=== PATIENT | male | born 1970 | race Caucasian/White ===

== ENCOUNTER → 2019-11-11 18:06 | Outpatient (CLI) | payer BC, SELFPAY ==
[2019-11-11 19:34] LABS: Basophils # 0.1 K/mm3 (0-0.2); Basophils % 0.6 % (0.1-2.0); Eosinophils # 0.1 K/mm3 (0.0-0.4); Eosinophils % 1.8 % (0.1-12.0); Hematocrit 42.1 % (42.0-52.0); Hemoglobin 14.8 g/dL (14.1-18.0); Lymphocytes # 2.5 K/mm3 (0.7-4.5); Lymphocytes % 31.5 % (10-50); Mean Corpuscular HGB Conc 35.1 g/dL (31.8-35.4); Mean Corpuscular Hemoglobin 33.2 pg (27.0-31.2); Mean Corpuscular Volume 94.7 fl (80-94); Mean Platelet Volume 8.3 fl (7.4-10.4); Monocytes # 0.5 K/mm3 (0.1-1.0); Monocytes % 6.7 % (1.7-9.3); Neutrophils # 4.7 K/mm3 (1.8-7.8); Neutrophils % 59.5 % (37.0-80.0); Platelet Count 254 K/mm3 (142-424); Red Blood Count 4.45 M/mm3 (4.60-6.20); Red Cell Distribution Width 13.7 % (11.5-17.5); White Blood Count 7.9 K/mm3 (4.8-10.8)
[2019-11-11 20:23] LABS: Alanine Aminotransferase 77 U/L (12-78); Albumin Level 4.3 g/dl (3.5-5.0); Albumin/Globulin Ratio 1.3 (1.1-1.8); Alkaline Phosphatase 74 U/L (38-126); Anion Gap 14.1 mEq/L (5-15); Aspartate Amino Transferase 95 U/L (17-59); Bilirubin,Total 0.7 mg/dl (0.2-1.3); Blood Urea Nitrogen 14 mg/dl (9-20); Calcium 10.5 mg/dl (8.4-10.2); Carbon Dioxide 26 mmol/L (22.0-30.0); Chloride 104 mmol/L (98-107); Cholesterol 244 mg/dl (140-200); Estimated Glomerular Filt Rate 119 ml/min (>60); GFR (African American) 144 ML/MIN (>60); Globulin 3.2 g/dL (1.3-3.2); Glucose 112 mg/dl (74-100); HDL Cholesterol 35 mg/dl (40-60); Potassium 4.1 mmoL/L (3.5-5.1); Sodium 140 mmol/L (136-145); Total Protein,Serum 7.5 g/dl (6.3-8.2)
[2019-11-11 20:26] LABS: Triglycerides 409 mg/dl (30-150)
[2019-11-11 20:34] LABS: Direct LDL Cholesterol 164.65 mg/dL (100-129)
== END ==
PROVIDERS: Visit Provider Family Medicine
DX: I10 Essential (primary) hypertension (principal)
CPT/HCPCS: 80053; 80061; 85025

== ENCOUNTER → 2020-11-02 18:20 | Outpatient (CLI) | payer BC, SELFPAY ==
[2020-11-02 18:56] LABS: Basophils # 0.1 K/mm3 (0-0.2); Eosinophils # 0.1 K/mm3 (0.0-0.4); Eosinophils % 1.7 % (0.1-12.0); Hemoglobin 15.1 g/dL (14.1-18.0); Lymphocytes # 2.4 K/mm3 (0.7-4.5); Lymphocytes % 27.9 % (10-50); Mean Corpuscular HGB Conc 33.6 g/dL (31.8-35.4); Mean Corpuscular Hemoglobin 32.1 pg (27.0-31.2); Mean Corpuscular Volume 95.5 fl (80-94); Mean Platelet Volume 8.8 fl (7.4-10.4); Monocytes # 0.6 K/mm3 (0.1-1.0); Monocytes % 7.3 % (1.7-9.3); Neutrophils # 5.4 K/mm3 (1.8-7.8); Neutrophils % 62.2 % (37.0-80.0); Platelet Count 282 K/mm3 (142-424); Red Blood Count 4.71 M/mm3 (4.60-6.20); Red Cell Distribution Width 13.6 % (11.5-17.5); White Blood Count 8.7 K/mm3 (4.8-10.8)
[2020-11-02 19:46] LABS: Chloride 105 mmol/L (98-107); Potassium 4.3 mmoL/L (3.5-5.1); Sodium 141 mmol/L (136-145)
[2020-11-02 19:49] LABS: Alanine Aminotransferase 72 U/L (12-78); Albumin Level 4.5 g/dl (3.5-5.0); Albumin/Globulin Ratio 1.5 (1.1-1.8); Alkaline Phosphatase 87 U/L (38-126); Anion Gap 13.3 mEq/L (5-15); Aspartate Amino Transferase 79 U/L (17-59); Bilirubin,Total 0.6 mg/dl (0.2-1.3); Blood Urea Nitrogen 10 mg/dl (9-20); Calcium 9.5 mg/dl (8.4-10.2); Carbon Dioxide 27 mmol/L (22.0-30.0); Estimated Glomerular Filt Rate 119 ml/min (>60); GFR (African American) 144 ML/MIN (>60); Glucose 105 mg/dl (74-100); Total Protein,Serum 7.5 g/dl (6.3-8.2)
[2020-11-02 20:19] LABS: Prostate Specific Ag Screen 0.2 ng/ml (0.0-4.0); Thyroid Stimulating Hormone 0.88 uIU/mL (0.465-4.68)
[2020-11-02 20:32] LABS: Hemoglobin A1C 6.7 % (4.0-6.0)
== END ==
PROVIDERS: Visit Provider Family Medicine
DX: E78.5 Hyperlipidemia, unspecified (principal); E66.9 Obesity, unspecified; Z12.5 Encounter for screening for malignant neoplasm of prostate
CPT/HCPCS: 80053; 83036; 84443; 85025; G0103

== ENCOUNTER → 2021-11-23 15:20 | Outpatient (CLI) | payer BC, SELFPAY ==
[2021-11-23 15:48] LABS: Basophils # 0.1 K/mm3 (0-0.2); Eosinophils # 0.1 K/mm3 (0.0-0.4); Eosinophils % 1.8 % (0.1-12.0); Hematocrit 43.9 % (42.0-52.0); Hemoglobin 14.4 g/dL (14.1-18.0); Lymphocytes % 29.9 % (10-50); Mean Corpuscular HGB Conc 32.7 g/dL (31.8-35.4); Mean Corpuscular Hemoglobin 33.3 pg (27.0-31.2); Mean Corpuscular Volume 101.8 fl (80-94); Mean Platelet Volume 9.2 fl (7.4-10.4); Monocytes # 0.5 K/mm3 (0.1-1.0); Monocytes % 7.7 % (1.7-9.3); Neutrophils # 3.9 K/mm3 (1.8-7.8); Neutrophils % 59.6 % (37.0-80.0); Platelet Count 293 K/mm3 (142-424); Red Blood Count 4.31 M/mm3 (4.60-6.20); Red Cell Distribution Width 13.8 % (11.5-17.5); White Blood Count 6.6 K/mm3 (4.8-10.8)
[2021-11-23 16:26] LABS: Albumin Level 4.1 g/dl (3.5-5.0); Albumin/Globulin Ratio 1.8 (1.1-1.8); Alkaline Phosphatase 96 U/L (38-126); Anion Gap 12.7 mEq/L (5-15); Aspartate Amino Transferase 59 U/L (17-59); Blood Urea Nitrogen 10 mg/dl (9-20); Calcium 9.5 mg/dl (8.4-10.2); Carbon Dioxide 26 mmol/L (22.0-30.0); Chloride 105 mmol/L (98-107); Chol/HDL Ratio 7.9 (1-3.5); Cholesterol 237 mg/dl (140-200); Estimated Glomerular Filt Rate 141 ml/min (>60); GFR (African American) 171 ML/MIN (>60); Globulin 2.3 g/dL (1.3-3.2); Glucose 111 mg/dl (74-100); HDL Cholesterol 30 mg/dl (40-60); Potassium 4.7 mmoL/L (3.5-5.1); Sodium 139 mmol/L (136-145); Total Protein,Serum 6.4 g/dl (6.3-8.2); Triglycerides 303 mg/dl (30-150); VLDL Cholesterol 61 mg/dL (0-40)
[2021-11-23 16:30] LABS: Bilirubin,Total < 0.1 mg/dl (0.2-1.3)
[2021-11-23 16:41] LABS: Alanine Aminotransferase 41 U/L (12-78)
[2021-11-23 17:23] LABS: Hemoglobin A1C 6.2 % (4.0-6.0)
[2021-11-25 15:34] LABS: Direct LDL Cholesterol 142 mg/dL (100-129)
== END ==
PROVIDERS: PCP Family Medicine; Visit Provider Family Medicine
DX: N20.0 Calculus of kidney (principal); E78.5 Hyperlipidemia, unspecified
CPT/HCPCS: 80053; 80061; 83036; 85025; 87086

== ENCOUNTER → 2022-08-12 13:27 | Outpatient (CLI) | payer BC, SELFPAY ==
[2022-08-12 14:40] LABS: Basophils # 0.1 K/mm3 (0-0.2); Basophils % 0.5 % (0.1-2.0); Eosinophils # 0.2 K/mm3 (0.0-0.4); Eosinophils % 1.7 % (0.1-12.0); Hematocrit 42.9 % (42.0-52.0); Hemoglobin 13.7 g/dL (14.1-18.0); Lymphocytes # 2.5 K/mm3 (0.7-4.5); Mean Corpuscular HGB Conc 32.1 g/dL (31.8-35.4); Mean Corpuscular Hemoglobin 31.5 pg (27.0-31.2); Mean Corpuscular Volume 98.3 fl (80-94); Mean Platelet Volume 8.4 fl (7.4-10.4); Monocytes # 0.7 K/mm3 (0.1-1.0); Monocytes % 6.8 % (1.7-9.3); Neutrophils # 6.6 K/mm3 (1.8-7.8); Platelet Count 307 K/mm3 (142-424); Red Blood Count 4.36 M/mm3 (4.60-6.20); Red Cell Distribution Width 13.4 % (11.5-17.5); White Blood Count 10.1 K/mm3 (4.8-10.8)
[2022-08-12 14:47] LABS: Alanine Aminotransferase 29 U/L (12-78); Albumin/Globulin Ratio 1.5 (1.1-1.8); Alkaline Phosphatase 66 U/L (38-126); Anion Gap 17.2 mEq/L (5-15); Aspartate Amino Transferase 50 U/L (17-59); Bilirubin,Total 0.6 mg/dl (0.2-1.3); Blood Urea Nitrogen 11 mg/dl (9-20); Calcium 9.5 mg/dl (8.4-10.2); Carbon Dioxide 30 mmol/L (22.0-30.0); Chloride 98 mmol/L (98-107); Chol/HDL Ratio 3.8 (1-3.5); Cholesterol 117 mg/dl (140-200); Estimated Glomerular Filt Rate 118 ml/min (>60); GFR (African American) 143 ML/MIN (>60); Globulin 2.7 g/dL (1.3-3.2); Glucose 115 mg/dl (74-100); HDL Cholesterol 31 mg/dl (40-60); Potassium 4.2 mmoL/L (3.5-5.1); Sodium 141 mmol/L (136-145); Total Protein,Serum 6.7 g/dl (6.3-8.2); Triglycerides 136 mg/dl (30-150); VLDL Cholesterol 27 mg/dL (0-40)
[2022-08-12 14:58] LABS: Direct LDL Cholesterol 79.15 mg/dL (100-129)
[2022-08-12 15:16] LABS: Hemoglobin A1C 6.2 % (4.0-6.0)
[2022-08-12 15:17] LABS: Prostate Specific Ag Screen 0.2 ng/ml (0.0-4.0)
== END ==
LOC: LAB.DROPOF 13:28
PROVIDERS: PCP Family Medicine; Visit Provider Family Medicine
DX: E78.5 Hyperlipidemia, unspecified (principal); E66.9 Obesity, unspecified; Z68.42 Body mass index [BMI] 45.0-49.9, adult; Z79.899 Other long term (current) drug therapy; Z12.5 Encounter for screening for malignant neoplasm of prostate
CPT/HCPCS: 80053; 80061; 83036; 84443; 85025; G0103

== ENCOUNTER → 2023-03-17 13:10 | Outpatient (CLI) | payer BC, OTHER, SELFPAY ==
--- NOTE | 2023-03-17 13:10 | MR_ITS ---
FINAL REPORT CLINICAL HISTORY: Bilateral radicular pain, BLATERAL LOWER EXTREMITY NUMBNESS AND PAIN COMPARISON: None FINDINGS: Multiplanar MR imaging of the lumbar spine was performed without and with contrast. On the sagittal T2-weighted images, abnormal decreased signal is seen throughout. There is abnormal loss of height disc spaces most evident at L1-2 and L2-3. There is no malalignment. L1-2: Mild disc bulge. Mild bilateral neural foraminal narrowing. L2-3: Moderate diffuse disc bulge. Flattening of the anterior aspect of the thecal sac. High-grade right and moderate left neural foraminal narrowing L3-4: [id number] diffuse disc bulge. Moderate to high-grade right and mild left neural foraminal narrowing. L4-5: Mild disc bulge. No significant central canal stenosis or neuroforaminal narrowing. L5-S1: Mild disc bulge. No significant canal stenosis or neuroforaminal narrowing is seen. There is enhancement of the posterior annulus at L2-3 IMPRESSION: Moderate disc bulge at L2-3 with neural foraminal compromise particularly evident on the right at L2-3 with some enhancing annulus: All consistent with degenerative disc disease. Significant neural foraminal narrowing on the right at L3-4. Reviewed, Interpreted and Dictated by Kadeem Hogue MD Transcribed by Loren Garcia Authenticated and . [facility]
== END ==
PROVIDERS: PCP Family Medicine; Visit Provider Family Medicine
DX: M54.50 Low back pain, unspecified (principal)
CPT/HCPCS: 72158; 76376; A9576

== ENCOUNTER 2023-07-31 18:00 | Outpatient (CLI) | payer BC, OTHER, SELFPAY ==
[2023-07-31 18:26] LABS: Basophils # 0.1 K/mm3 (0-0.2); Basophils % 0.6 % (0.1-2.0); Eosinophils # 0.1 K/mm3 (0.0-0.4); Eosinophils % 1.5 % (0.1-12.0); Hematocrit 43.5 % (42.0-52.0); Lymphocytes # 2.7 K/mm3 (0.7-4.5); Lymphocytes % 27.9 % (10-50); Mean Corpuscular HGB Conc 32.3 g/dL (31.8-35.4); Mean Corpuscular Hemoglobin 31.8 pg (27.0-31.2); Mean Corpuscular Volume 98.4 fl (80-94); Mean Platelet Volume 9.3 fl (7.4-10.4); Monocytes # 0.9 K/mm3 (0.1-1.0); Neutrophils # 5.8 K/mm3 (1.8-7.8); Platelet Count 443 K/mm3 (142-424); Red Blood Count 4.42 M/mm3 (4.60-6.20); Red Cell Distribution Width 13.8 % (11.5-17.5); White Blood Count 9.5 K/mm3 (4.8-10.8)
[2023-07-31 18:53] LABS: Alanine Aminotransferase 39 U/L (12-78); Albumin Level 3.9 g/dl (3.5-5.0); Albumin/Globulin Ratio 1.6 (1.1-1.8); Alkaline Phosphatase 66 U/L (38-126); Anion Gap 9.1 mEq/L (5-15); Aspartate Amino Transferase 50 U/L (17-59); Bilirubin,Total 0.5 mg/dl (0.2-1.3); Blood Urea Nitrogen 12 mg/dl (9-20); Carbon Dioxide 29 mmol/L (22.0-30.0); Chloride 107 mmol/L (98-107); Chol/HDL Ratio 4.1 (1-3.5); Cholesterol 140 mg/dl (140-200); Estimated Glomerular Filt Rate 118 ml/min (>60); GFR (African American) 142 ML/MIN (>60); Globulin 2.4 g/dL (1.3-3.2); Glucose 110 mg/dl (74-100); HDL Cholesterol 34 mg/dl (40-60); Potassium 4.1 mmoL/L (3.5-5.1); Sodium 141 mmol/L (136-145); Total Protein,Serum 6.3 g/dl (6.3-8.2); Triglycerides 202 mg/dl (30-150); VLDL Cholesterol 40 mg/dL (0-40)
[2023-07-31 19:04] LABS: Direct LDL Cholesterol 85.93 mg/dL (100-129)
[2023-07-31 19:29] LABS: Hemoglobin A1C 7.1 % (4.0-6.0)
== END 2023-07-31 23:59 | disposition home or self-care (01) ==
LOC: LAB.DROPOF 08-01 07:58
PROVIDERS: PCP Family Medicine; Visit Provider Family Medicine
DX: R73.03 Prediabetes (principal); E78.5 Hyperlipidemia, unspecified; I10 Essential (primary) hypertension; Z72.0 Tobacco use; E66.01 Morbid (severe) obesity due to excess calories; Z68.42 Body mass index [BMI] 45.0-49.9, adult
CPT/HCPCS: 80053; 80061; 83036; 85025

== ENCOUNTER 2024-09-30 10:32 | Outpatient (CLI) | payer BC, OTHER, SELFPAY ==
[2024-09-30 19:02] LABS: Basophils # 0.1 K/mm3 (0-0.2); Basophils % 0.6 % (0.1-2.0); Eosinophils # 0.2 Kmm3 (0.0-0.4); Eosinophils % 1.9 % (0.1-12.0); Hematocrit 44.5 % (42.0-52.0); Hemoglobin 14.7 g/dL (14.1-18.0); Immature Granulocytes # 0.07 10^3uL; Immature Granulocytes % 0.9 %; Lymphocytes % 25.2 % (10-50); Mean Corpuscular Hemoglobin 31.8 pg (27.0-31.2); Mean Corpuscular Volume 96.3 fl (80-94); Mean Platelet Volume 10.6 fl (7.4-10.4); Monocytes # 0.9 K/mm3 (0.1-1.0); Monocytes % 11.3 % (1.7-9.3); Neutrophils # 4.8 K/mm3 (1.8-7.8); Neutrophils % 60.1 % (37.0-80.0); Nucleated Red Blood Cells # 0 10^3/uL; Nucleated Red Blood Cells % 0 %; Platelet Count 302 K/mm3 (142-424); Red Blood Count 4.62 M/mm3 (4.60-6.20); Red Cell Distribution Width 13.3 % (11.5-17.5); Red Cell Distribution Width-SD 47.8 fL
[2024-09-30 19:58] LABS: Alanine Aminotransferase 43 U/L (12-78); Albumin Level 4.3 g/dl (3.5-5.0); Albumin/Globulin Ratio 1.4 (1.1-1.8); Alkaline Phosphatase 76 U/L (38-126); Anion Gap 13.5 mEq/L (5-15); Aspartate Amino Transferase 55 U/L (17-59); Bilirubin,Total 0.9 mg/dl (0.2-1.3); Blood Urea Nitrogen 16 mg/dl (9-20); Calcium 10.2 mg/dl (8.4-10.2); Carbon Dioxide 28 mmol/L (22.0-30.0); Chloride 99 mmol/L (98-107); Chol/HDL Ratio 7.9 (1-3.5); Cholesterol 252 mg/dl (140-200); Estimated Glomerular Filt Rate 117 ml/min (>60); GFR (African American) 142 ML/MIN (>60); Glucose 123 mg/dl (74-100); HDL Cholesterol 32 mg/dl (40-60); Potassium 4.5 mmoL/L (3.5-5.1); Sodium 136 mmol/L (136-145); Total Protein,Serum 7.3 g/dl (6.3-8.2); Triglycerides 362 mg/dl (30-150); VLDL Cholesterol 72 mg/dL (0-40)
[2024-09-30 20:09] LABS: Direct LDL Cholesterol 154.37 mg/dL (100-129)
[2024-09-30 20:29] LABS: Prostate Specific Ag Screen 0.2 ng/ml (0.0-4.0)
[2024-09-30 20:34] LABS: HIV Combo NEGATIVE (Negative)
[2024-09-30 20:48] LABS: Hepatitis C Ab Qual. W/ RFX NEGATIVE (Negative)
[2024-10-02 03:38] LABS: Testosterone,Total 573 ng/dL (264-916)
[2024-10-02 05:09] LABS: Hepatitis B Surface Antigen Negative (Negative)
--- OUTSIDE RECORDS SUMMARY | 2024-10-02 10:38 | XMS_ITS | Encounter Summary ---
Author Organization [place] [address] Care Team Providers Care Vending Mechanic Name Role Phone Jonnathan Fernandes MD Primary Care Provider [phone] Encounter Details Date Type Department Care Team (Late st Contact Info) Description 01/17/2022 Lab Requisition [facility] [place] [id number] Essential (primary) hypertension; Calculus of ureter Social History Tobacco Use Types Packs/Day Years Used Date Smoking Tobacco: Every Day Cigarettes Smokeless Tobacco: Never Alcohol Use Standard Drinks/Week Comments Yes 0 (1 standard drink = 0.6 oz pur e alcohol) ocasionally Sex and Gender Information Value Date Recorded Sex Assigned at Not on file Legal Sex Male 9:06 PM EDT Gender Identity Not on file Sexual Orientation Not on file documented as of this encounter Plan of Treatment Not on file documented as of this encounter Procedures Procedure Name Priority Date/Time Associated Diagnosis Comments CALCULI (STONE) ANALYSIS - REF LAB Routine 01/17/2022 12:00 PM EDT Essential (primary) hypertension Calculus of ureter documented in this encounter Results * CALCULI (STONE) ANALYSIS - REF LAB (01/17/2022 12:00 PM EDT) Calculi Comp See Note 01/20/2022 9:21 PM EDT [facility] Comment: Calculi composed primarily of calcium carbonate (calcite). INTERPRETIVE INFORMATION: Calculi (Stone) analysis Calculi are the products of physiological processes that yield crystalline compounds in a matrix of biological compounds and blood. Matrix components are not reported. The clinically significant crystalline components identified in calculi specimens are reported. Gross description may not be consistent with composition determined by FTIR analysis. Performed By: [facility] [address] [place] [address] Turning Machine Operator: Barrie Nieto MD, PhD Calculi Mass 12 mg 01/20/2022 9:21 PM EDT [facility] Calculi Desc See Note 01/20/2022 9:21 PM EDT [facility] Comment: Specimen consists of one zhong calculus. The total weight is 12 mg. Calculus URINE SPECIMEN COLLECTION / Unknown 01/17/2022 12:00 PM EDT 01/17/2022 8:19 PM EDT us Jeremiah Alanis MD MICROBIOLOGY - GENERAL OR DERABLES Final Result [facility] [address] [place] [address] documented in this encounter Visit Diagnoses Diagnosis Essential (primary) hypertension Unspecified essential hypertension Calculus of ureter documented in this encounter Care Teams Vending Mechanic Relationship Specialty Start Date End Date Jonnathan Fernandes MD PCP - General Family Medicine 03/01/11 documented as of this encounter
--- OUTSIDE RECORDS SUMMARY | 2024-10-02 10:38 | XMS_ITS | Clinical Summary ---
Author Organization [facility] Address [address] [place] [address] Care Team Providers Care Jet Ski Mechanic Name Role Phone Jonnathan Fernandes MD Primary Care Provider [phone] Allergies No known active allergies Medications lisinopril-hydro chlorothiazide (PRINZIDE;ZESTOR ETIC) 20-12.5 MG per tablet Take 1 tablet by mouth daily. Active diclofenac (VOLTAREN) 75 MG EC tablet Take 75 mg by mouth 2 times daily. Active simvastatin (ZOCOR) 20 MG tablet Take 20 mg by mouth nightly. Active cetirizine (ZYRTEC) 10 MG tablet Take 10 mg by mouth daily as needed. Active Active Problems No known active problems Social History Tobacco Use Types Packs/Day Years Used Date Smoking Tobacco: Every Day Cigarettes 1 16 Smokeless Tobacco: Never Alcohol Use Standard Drinks/Week Comments Yes 4 (1 standard drink = 0.6 oz pur e alcohol) Sex and Gender Information Value Date Recorded Sex Assigned at Not on file Legal Sex Male 8:51 PM EST Gender Identity Not on file Sexual Orientation Not on file Last Filed Vital Signs Vital Sign Reading Time Taken Comments Blood Pressure 135/95 03/24/2011 1:37 PM EST Pulse 84 03/24/2011 1:37 PM EST Temperature 35.9 C (96.6 F) 03/24/2011 1:37 PM EST Respiratory Rate 18 03/24/2011 1:37 PM EST Oxygen Saturation 97% 03/24/2011 1:37 PM EST Inhaled Oxygen Concentration - - Weight 122.9 kg (271 lb) 03/24/2011 8:58 AM EST Height 171.5 cm (5' 7.5 ) 03/24/2011 8:58 AM EST Body Mass Index 41.82 03/24/2011 8:58 AM EST Plan of Treatment Not on file Advance Directives Documents on File Type Date Recorded Patient Plastic Cutter Expl anation ACP-Advance Directive 10/17/2012 3:33 AM * Full Code (Latest Code Status on File) Date Activated Date Inactivated Comments 03/24/2011 12:43 PM 03/25/2011 2:16 AM Care Teams Jet Ski Mechanic Relationship Specialty Start Date End Date Jonnathan Fernandes MD [address] [place] [address] PCP - General 03/17/11
--- OUTSIDE RECORDS SUMMARY | 2024-10-02 10:38 | XMS_ITS | Clinical Summary ---
Author Organization [facility] Address [address] [place] [address] Phone Care Team Providers Care Line Supply Name Role Phone Jonnathan Fernandes MD Primary Care Provider [phone] Allergies Active Allergy Reactions Criticality Noted Date Comments Gemfibrozil Nausea And Vomiting Low 11/16/2021 Medications lisinopril (PRINIVIL;ZESTR IL) 10 mg Oral Tablet Take by mouth daily. Active pantoprazole (PROTONIX) 40 mg Oral Tablet, Delayed Release (E.C.) Take 40 mg by mouth daily. Active gemfibrozil (LOPID) 600 mg Oral Tablet Take 600 mg by mouth 2 times daily (before meals). Active amLODIPine-tiffanie zepril (LOTREL) 10-40 mg Oral Capsule Take 1 Capsule by mouth daily. 2 Active LIPITOR 20 mg Oral Tablet 4 Active TRICOR 145 mg Oral Tablet 4 Active [id number]-as b-C (PLENVU) 140-9-5.2 gram Oral Powder in Packet, SequentialIndic ations:Personal history of colonic polyps Take 3 Packets by mouth Preprocedure for up to 1 dose. 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 01/20/2014 Surgical History Surgery Date Site/Laterality Comments FOOT SURGERY Bilateral KNEE ARTHROSCOPY Bilateral Medical History Medical History Date Comments Kidney stones Hypertension Skinner's esophagus History of colonic polyps GERD (gastroesophageal reflux disease) Social History Tobacco Use Types Packs/Day Years Used Date Smoking Tobacco: Every Day Cigarettes Smokeless Tobacco: Never Tobacco Cessation:Ready to Q uit: Not Asked; Counseling Given: Not Answered Alcohol Use Standard Drinks/Week Comments Yes 0 (1 standard drink = 0.6 oz pur e alcohol) ocasionally Sex and Gender Information Value Date Recorded Sex Assigned at Not on file Legal Sex Male 9:06 PM EDT Gender Identity Not on file Sexual Orientation Not on file Obstetrics History Last Filed Vital Signs Vital Sign Reading Time Taken Comments Blood Pressure 130/81 10/17/2023 11:27 AM EDT Pulse 86 10/17/2023 11:27 AM EDT Temperature 36.2 C (97.2 F) 10/17/2023 9:23 AM EDT Respiratory Rate 16 10/17/2023 11:2 7 AM EDT Oxygen Saturation 92% 10/17/2023 11: 27 AM EDT Inhaled Oxygen Concentration - - Weight 136.9 kg (301 lb 12.8 oz) 10/17/2023 9:23 AM EDT Height 170.2 cm (5' 7 ) 10/17/2023 9:23 AM EDT Body Mass Index 47.27 10/17/2023 9:23 AM EDT Plan of Treatment Health Maintenance Due Date Last Done Comments Annual Wellness Exam 1972 DTaP/TDaP/Td (1 - Tdap) 1988 Hepatitis B Vaccine (1 of 3 - 19+ 3-dose series) 1988 Pneumococcal Vaccine 50+ (1 of 2 - PCV) 1988 Cologuard 2014 FIT 2014 Sigmoidoscopy 2014 Virtual Colonography 2014 Zoster (1 of 2) 2019 COVID-19 Vaccine (1 - 2023-2 5 season) 2023 Influenza Vaccine (#1) 2024 Colon Cancer Screening 10/15/2028 Colonoscopy 10/15/2028 10/17/2023, 02/28/2017 Meningococcal B Vaccine Aged Out No l onger eligible based on patient's age to complete this topic Procedures Procedure Name Priority Date/Time Associated Diagnosis Comments COLONOSCOPY Routine 10/17/2023 11:09 AM EDT Personal history of colonic polyps from Last 3 Months or Most Recently Relevant to Health Maintenance Results * COLONOSCOPY (10/17/2023 11:09 AM EDT) Anatomical Region Laterality Modality Endoscopy Narrative 10/17/2023 11:17 AM EDT Table formatting from the original result was not included. Findings Few scattered diverticula of moderate severity in the mid descending colon and mid sigmoid colon; no bleeding was identified Two internal medium, protruding (grade 2) hemorrhoids; no bleeding was identified The cecum, ascending colon, transverse colon, descending colon, sigmoid colon and rectum appeared normal. Recommendation Repeat colonoscopy in 5 years, due: 10/15/2028 Recommend a high fiber diet. Follow up with pathology results. If no results in 4 weeks, please call the office at [phone]. Office follow up as needed Pre-Procedure Diagnosis / Indication Personal history of colonic polyps Post-Procedure Diagnosis Personal history of colonic polyps Staff Staff Role No Staff Documented Medications See Anesthesia Record. Preprocedure A history and physical has been performed, and patient medication allergies have been reviewed. The patient's tolerance of previous anesthesia has been reviewed. The risks and benefits of the procedure and the sedation options and risks were discussed with the patient. All questions were answered and informed consent obtained. ASA 3 - Patient with severe systemic disease Details of the Procedure The patient underwent monitored anesthesia care, which was administered by an anesthesia professional. The patient's blood pressure, heart rate, level of consciousness, oxygen, respirations, ECG and ETCO2 were monitored throughout the procedure. A digital rectal exam was performed. The scope was introduced through the anus and advanced to the cecum. Retroflexion was performed in the rectum. Bowel prep was adequate. The patient experienced no blood loss. The procedure was not difficult. The patient tolerated the procedure well. There were no apparent adverse events. Patient provided education and educated on specific discharge instructions. Patient educated on medications given during the procedure and new medications for discharge. Patient verbalizes understanding of discharge education. Patient stable and awaiting transport for discharge. Events Procedure Events Event Event Time ENDO SCOPE IN TIME 10/17/2023 10:49 AM ENDO SCOPE OUT TIME 10/17/2023 10:53 AM ENDO SCOPE IN TIME 10/17/2023 10:58 AM ENDO CECUM REACHED 10/17/2023 11:02 AM ENDO SCOPE WITHDRAW BEGIN 10/17/2023 11:02 AM ENDO SCOPE OUT TIME 10/17/2023 11:09 AM Specimens ID Type Source Tests Collected by Time 1 : r/o h pylori Tissue Gastric [facility] PATHOLOGY ORDER David Stein MD 10/17/2023 1055 2 : r/o barretts Tissue Gastroesophageal Junction [facility] PATHOLOGY ORDER David Stein MD 10/17/2023 1055 [facility] ENDOSCOPY PROCEDURE ORDERA BLES Final Result from Last 3 Months or Most Recently Relevant to Health Maintenance Insurance ASHA PPO ANTHBRAD PPO ANTH PPO Care Teams Line Supply Relationship Specialty Start Date End Date Jonnathan Fernandes MD PCP - General Family Medicine 03/01/11
== END 2024-09-30 23:59 | disposition home or self-care (01) ==
LOC: LAB.DROPOF 10-02 10:32
PROVIDERS: PCP Family Medicine; Visit Provider Family Medicine
DX: Z12.5 Encounter for screening for malignant neoplasm of prostate (principal); Z11.59 Encounter for screening for other viral diseases; E78.5 Hyperlipidemia, unspecified; R73.03 Prediabetes; I10 Essential (primary) hypertension
CPT/HCPCS: 80053; 80061; 83036; 84403; 85025; 86803; 87340; 87389; G0103

== ENCOUNTER 2025-01-31 09:41 | Outpatient (CLI) | payer BC, OTHER, SELFPAY ==
[2025-01-31 14:40] LABS: Hematocrit 42.1 % (42.0-52.0); Hemoglobin 13.9 g/dL (14.1-18.0); Immature Granulocytes % 0.4 %; Mean Corpuscular HGB Conc 33.0 g/dL (31.8-35.4); Mean Corpuscular Hemoglobin 31.4 pg (27.0-31.2); Mean Corpuscular Volume 95.0 fl (80-94); Nucleated Red Blood Cells % 0 %; Platelet Count 302 K/mm3 (142-424); Red Blood Count 4.43 M/mm3 (4.60-6.20); Red Cell Distribution Width-SD 47.6 fL; White Blood Count 9.7 K/mm3 (4.8-10.8)
[2025-01-31 15:53] LABS: Albumin Level 4.7 g/dl (3.5-5.0); Chloride 104 mmol/L (98-107)
[2025-01-31 15:54] LABS: Potassium 4.0 mmoL/L (3.5-5.1); Sodium 135 mmol/L (136-145)
[2025-01-31 15:56] LABS: Alanine Aminotransferase 24 U/L (12-78); Alkaline Phosphatase 68 U/L (38-126); Anion Gap 8.0 mEq/L (5-15); Aspartate Amino Transferase 35 U/L (17-59); Bilirubin,Total 0.3 mg/dl (0.2-1.3); Carbon Dioxide 27 mmol/L (22.0-30.0)
[2025-01-31 15:57] LABS: Albumin/Globulin Ratio 2.2 (1.1-1.8); Calcium 9.4 mg/dl (8.4-10.2); Cholesterol 113 mg/dl (140-200); Globulin 2.1 g/dL (1.3-3.2); Glucose 104 mg/dl (74-100); HDL Cholesterol 33 mg/dl (40-60); Total Protein,Serum 6.8 g/dl (6.3-8.2); Triglycerides 119 mg/dl (30-150)
[2025-01-31 16:17] LABS: Blood Urea Nitrogen 15 mg/dl (9-20); Creatinine,Serum 0.80 mg/dl (0.66-1.25); Estimated Glomerular Filt Rate 100 ml/min (>60); GFR (African American) 121 ML/MIN (>60)
--- OUTSIDE RECORDS SUMMARY | 2025-02-03 09:44 | XMS_ITS | Encounter Summary ---
Author Organization [place] [address] Care Team Providers Care Seal Delivery Vehicle Officer Name Role Phone Jonnathan Fernandes MD Primary Care Provider [phone] Encounter Details Date Type Department Care Team (Late st Contact Info) Description 01/17/2022 Lab Requisition [facility] [place] [id number] Essential (primary) hypertension; Calculus of ureter Social [...] Comp See Note 01/20/2022 9:21 PM EDT [facility] Comment: Calculi composed primarily of calcium carbonate (calcite). INTERPRETIVE INFORMATION: Calculi (Stone) analysis Calculi are the products of physiological processes that yield crystalline compounds in a matrix of biological compounds and blood. Matrix components are not reported. The clinically significant crystalline components identified in calculi specimens are reported. Gross description may not be consistent with composition determined by FTIR analysis. Performed By: [facility] [address] [place] [address] Gospel Worker: Barrie Nieto MD, PhD Calculi Mass 12 mg 01/20/2022 9:21 PM EDT [facility] Calculi Desc See Note 01/20/2022 9:21 PM EDT [facility] Comment: Specimen consists of one zhong calculus. The total weight is 12 mg. Calculus URINE SPECIMEN COLLECTION / Unknown 01/17/2022 12:00 PM EDT 01/17/2022 8:19 PM EDT us Jeremiah Alanis MD MICROBIOLOGY - GENERAL OR DERABLES Final Result [facility] [address] [place] [address] documented in this encounter Visit Diagnoses Diagnosis Essential (primary) hypertension Unspecified essential hypertension Calculus of ureter documented in this encounter Care Teams Seal Delivery Vehicle Officer Relationship Specialty Start Date End Date Jonnathan Fernandes MD PCP - General Family Medicine 03/01/11 documented as of this encounter
--- OUTSIDE RECORDS SUMMARY | 2025-02-03 09:44 | XMS_ITS | Clinical Summary ---
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
--- OUTSIDE RECORDS SUMMARY | 2025-02-03 09:44 | XMS_ITS | Clinical Summary ---
Author Organization [facility] Address [address] [place] [address] Phone Care Team Providers Care Wine Specialist Name Role Phone Jonnathan Fernandes MD Primary Care Provider [phone] Allergies Active Allergy Reactions Criticality Noted Date [...] TRICOR 145 mg Oral Tablet 4 Active [id number] b-C (PLENVU) 140-9-5.2 gram Oral Powder in [...] Zoster (1 of 2) 2019 COVID-19 Vaccine (2024-2 6 season) 2024 Influenza Vaccine (#1) 2024 Colon Cancer Screening [...] 4 weeks, please call the office at [phone]. Office follow up as needed Pre-Procedure Diagnosis [...] PATHOLOGY ORDER David Stein MD 10/17/2023 1055 [facility] DIELECTRIC MACHINE OPERATOR ENDOSCOPY PROCEDURE ORDERA BLES Final Result from Last 3 Months or Most Recently Relevant to Health Maintenance Insurance ASHA PPO ASHA PPO ANTH PPO Care Teams Wine Specialist Relationship Specialty Start Date End Date Jonnathan Fernandes MD PCP - General Family Medicine 03/01/11
--- OUTSIDE RECORDS SUMMARY | 2025-02-03 09:45 | XMS_ITS | Data Portability ---
Author Organization Formerly [facility] Address [address] [place] [address] Care Team Providers Care Purchase Request Editor Name Role Phone DAWOOD GARCIA Referring Provider Assessment Encounter Date Assessment Date Assessment LastModified by Organization Details LastModified Time 04/10/2023 04/10/2023 BRIEF PAIN HISTORY: 52-year-old male new patient referral for chronic low back and bilateral radicular pain down to the knees. He reports pains around 2022 over 8 months ago without cause. Has been slowly progressive to the point it which has been affecting his ability to perform ADLs. He has tried conservative measures including nhdj-sze-uvaiobr medications without relief. No help from care management specialist. Due to ongoing issues with pain he was sent for MRI and referred on to our office. He is not interested in any controlled medications. Looking for other treatment options. SX: Reports pain across low back with some referred into the hips and anterior thighs down to the knees. States the pain is a constant aching, throbbing, sharp aggravated with activity including standing, walking, lifting, carrying, bending, squatting, pushing, pulling. Reports occasional cramps into his thighs as well. Denies any bowel or bladder incontinence. Reports weakness numbness and tingling in the legs along this area as well. PERTINENT IMAGING: Lumbar MRI with and without contrast March 2023: L1-2: Mild disc bulge. L2-3: Moderate diffuse disc bulge. Flattening of the anterior aspect of the thecal sac. High-grade right and moderate left neuroforaminal narrowing. Enhancement of the posterior annulus related to possible annular tear. L3-4: Mild to moderate diffuse disc bulge. Moderate high-grade right and left neuroforaminal narrowing. L4-5: Mild disc bulge. L5-S1: Mild disc bulge. OTHER TREATMENTS: Conservative: No help from 6 weeks physical therapy. No help from care management specialist. 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 He has not responded to conservative therapy. MRI supports radicular symptoms along bilateral L2 and L3 dermatomes. He is not interested in controlled medications. We discussed injection therapy and he is agreeable move forward. History and exam are consistent with low back and leg pain from lumbar radiculitis, supported by imaging. Symptoms have not responded to >3 months conservative therapy including but not limited to physical therapy, NSAID medications. Symptoms are affecting ability to perform ADLs. I am going to schedule for a LESI L2-3 interlaminar PLAN: 1. Order placed for intralaminar LESI L2-3 Discussed new orders/changes with patient. Patient expressed agreement and full understanding of above plan. All questions answered in full. Follow-up 30 days Much of this encounter is an electronic building services technician/tra nslation of spoken language to printed text. The electronic translation of spoken language may permit erroneous or at times nonsensical words of phrases to be inadvertently transcribed; Although I have reviewed the note for such errors, some may still exist. [email or web address] Not available 04/10/2023 09:14:38 Plan of Treatment Reminders Order Date Submit Date Provider Last Modified By Organization Details Last Modified Time Details Appointments None recorded. Lab None recorded. Referral None recorded. Procedures epidural steroid injection, lumbar interlamina r (PROC) - L2/L3 2023 024 [email or web address] Not available 08:43:21 Surgeries None recorded. Imaging None recorded. Medication Orders None recorded. Patient TargetsNo targets recorded. Patient Instructions Encounter Date Encounter Id Patient Instructions Last Modified By Organization Details Last Modified Time 04/10/2023 [id number] advance directives: care instructions [email or web address] Not available 04/10/2023 09:14:49 depression and chronic disease: care instructions Not available 04/10/2023 09:14:49 safe use of opioid pain medicine: care instructions [email or web address] Not available 04/10/2023 09:14:49 Reason for Referral None Reported. Results Created Date Observation Date Name Description Value Unit Range Abnormal Flag Note LastModifiedBy Organization Detail LastModifiedTime 05/08/19 24 epidu ral stero id injec tion, lumba r inter shashi ar (PROC ) No observ ation record ed. [email or web address] Not Available 05/08 11:04:25 Result Notes None recorded. Problems Name Problem SNOMED Code Status Onset Date Resolution Date Notes Provider Name and Address Organization Details Recorded Time Degeneratio n of lumbar interverteb ral disc 27958340 Active 2023 Lana Tino [facility] 4 09:09:00 Lumbar radiculitis 3528954535380 9104 Active 2023 Lana Tino [facility] 4 09:09:09 Lumbar radiculopat hy 584968685 Active 2023 Lana Jiménez [facility] 4 09:09:24 Problem Notes None recorded. Procedures Surgical History Date Name Laterality Status Provider Name and Address Organization Details Recorded Time 04/25/19 24 Lumbar ELIZABETH: Interlaminar completed Navi Concepcion MD [address] [place] [address], [phone] [facility] 04/25/2023 15:07:53 procedure on foot completed Lanayomaira Jiménez [facility] 04/10/2023 08:55:22 Knee arthroscopy/surg [place] completed Lana Tino [facility] 04/10/2023 08:55:48 Imaging Results None recorded. Procedure Notes None recorded. Medical Equipment None Reported. Allergies No known drug allergies Medications Name Sig Start Date Stop Date Status Note LastModified by Organization Details LastModified Time atorvastatin 20 mg tablet TAKE 1 TABLET ORALLY ONCE DAILY active Not Available Not Available No t Available hydrocodone 5 mg-acetamino phen 325 mg tablet TAKE 1 TABLET BY MOUTH TWICE A DAY NEEDED FOR PAIN 04/10 completed Not Available Not Available Not Available pantoprazole 40 mg tablet,delay ed release TAKE 1 TABLET BY MOUTH TWICE A DAY active Not Available Not Available No t Available dexamethason e 4 mg tablet TAKE 1 TABLET BY MOUTH TWICE A DAY active Not Available Not Available No t Available amlodipine 10 mg-benazepri l 40 mg capsule TAKE 1 CAPSULE BY MOUTH EVERY DAY active Not Available Not Available No t Available fenofibrate nanocrystall ized 145 mg tablet TAKE 1 TABLET BY MOUTH EVERY DAY active Not Available Not Available No t Available Vitals Date Recorded Body height Body mass index (BMI) Body weight Pain severity - 0-10 verbal numeric rating [Score] - Reported Heart rate Oxygen saturation Oxygen saturation in Arterial blood by Pulse oximetry Systolic And Diastolic Provider Name and Address Organization Details Last Updated DateTime 4 170.18 cm 47 kg/m2 970765. 71 g 3 74 /min 99 % 99 % 127/76 mm[Hg] Lana Jiménez [facility] 4 08:52:52 Social History Question Answer Notes LastModified by Organizat ion Details LastModified Time Tobacco Smoking Status Current Every Day Smoker Lana Jiménez [facility] 04/10/2023 08:54:47 Do You Have An Advance Directive? Yes Information not available 04/10/2023 What Type Of Diet Are You Following? REGULAR Information not available 04/10/2023 What Is The Highest Grade Or Level Of School You Have Completed Or The Highest Degree You Have Received? ND17203-6 Information not available 04/10/2023 Do You Have A Medical Power Of Stamping Die Maker Bench? Yes Information not available 04/10/2023 What Was The Date Of Your Most Recent Tobacco Screening? 04/10/2023 Information not available 04/10/2023 How Much Tobacco Do You Smoke? 0.5 PPD Information not available 04/10/2023 How Many Years Have You Smoked Tobacco? 35 Information not available 04/10/2023 Sex: Unknown Functional Status Question Answer Note LastModified by Organizat ion Details LastModified Time Do you use any illicit or recreational drugs? No Information not available 04/10/2023 What is your level of alcohol consumption? None Information not available 04/10/2023 Are you currently employed? Yes Information not available 04/10/2023 Are you able to walk independently without assistance or assistive devices? YESWOREST Information not available 04/10/2023 What is your occupation? [employer] Information not available 04/10/2023 What is your exercise level? None Information not available 04/10/2023 Mental Status None recorded. Family History Relationship Description Onset Age of this Age Resolved Age Notes LastModified by Organization Details LastModified Time Father No current problems or disability Not available 11/2023 08:54:08 Mother No current problems or disability Not available 11/2023 08:54:08 Medical History Condition Response Bipolar Disease N Coronary Artery Disease N Gout N Seizure Disorder N Thyroid Disease N Atrial Fibrillation N Hernia N Head Trauma/Injury N COPD N Depression N Anxiety Disorder N Acid Reflux (GERD) N Cancer N Skin Disorder N Stroke N High Cholesterol Y Liver Disease N Rheumatoid Arthritis N Fibromyalgia N Headaches N Autoimmune Disease N Kidney Disease N Osteoarthritis N Neurosurgery N DVT N Peptic Ulcer Disease N Anemia N Heart Attack ([place]) N Diabetes N Cardiomyopathy N Bleeding Disorder N CHF N AIDS/HIV N Inflammatory Bowel Disease N Dementia N Asthma N Substance Abuse N Sleep Apnea N Hepatitis N Heart Disease N Pulmonary Embolism N Chronic Low Back Pain Y Hypertension Y Osteoporosis N Past Encounters Encounter ID Performer Location Encounter Start Date Encounter Closed Date Diagnosis/Indication Diagnosis SNOMED-CT Code Diagnosis ICD10 Code Diagnosis IMO Codes Diagnosis Note [id number] Navi Concepcion MD [place] [address] [place] [address] 04/10/2023 08:32:49 04/10/2023 09:15:35 Long-term drug therapy 717883531 Z79.899 Degenerati on of lumbar intervertebral disc 26772352 M51.36 L2-3 and L3-4 Lumbar radiculopathy 128 740358 M54.16 [id number] Navi Concepcion MD [place] [address] [place] [address] 04/25/2023 14:23:18 04/25/2023 14:42:39 Lumbar radiculopathy 587589104 M54.16 Health Concerns Section Related Observation LastModified by Organization Detai ls LastModified Time None Recorded Concern Status LastModified by Organization Details LastModified Time None Recorded Advance Directives Directive Y: Payers Insurance Date Sequence Insurance Name Policy Number Policy Carlin Covered Member ID Carlin Member ID Guarantor Name 04/22/2023 1 [place] [id number] Sridhar Piña [id number] Sridhar Piña Notes Date Note Type Note Provider Name and Address Organization Details Recorded Time 4 text/html Low back painReported by PatientHPIFor associated symptoms, patient reportsweakness (ble),numbness (ble), andtingling (ble). 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 For onset, patient reportsdate of onset: (2022). For location, patient reportsmidlineandradiati ng down the right lower extremity to the knee. For duration, patient reportsvaries throughout the day. For context, patient reportsoveruse. For quality, patient reportsaching,throbbing, andsharp. For pain intensity, patient reportscurrent pain level: 3/10,average pain level: 5/10, andworst pain level: 10/10. For alleviating factors, patient reportssitting,lying down,changing positions, andlimited weight bearing. For aggravating factors, patient reportsstanding,walking, lifting,carrying,bending /squatting, andpushing/pulling. For prior imaging, patient reportsmri. For lumbar surgery, patient reportsnone. For physical therapy, patient reportscurrently participating in home exercise program(hep): effectiveanddate started hep: 12/2022 days per week: 6. For medications history, patient reportsopioid pain medications: (hydrocodone- helpful). For adverse reactions, patient reportsno nausea,no vomiting, andno constipation. For other conservative treatments, patient reportschiropractic treatments: effective,heat: effective, andice: effective. For prior pain management, patient reportsno. For oswestry disability index (zi), patient reportsscore/date completed: (04/10/2023--17). Navi Concepcion MD [address] [place] [address], [phone], [facility] 04/10/2023 09:16:17 4 text/html LESI L2/L3, #1 Navi Concepcion MD [address] [place] [address], [phone], [facility] 04/25/2023 15:08:25
== END 2025-01-31 23:59 ==
LOC: LAB.DROPOF 02-03 09:41
PROVIDERS: PCP Family Medicine; Visit Provider Family Medicine
DX: E78.5 Hyperlipidemia, unspecified (principal); R73.03 Prediabetes; I10 Essential (primary) hypertension; E66.9 Obesity, unspecified
CPT/HCPCS: 80053; 80061; 82043; 82570; 85025